=== PATIENT | female | born 1980 | race Two or more races ===

== ENCOUNTER 2023-09-26 17:44 | Emergency (ER) | payer OTHER, SELFPAY ==
[2023-09-26 17:48] VITALS: BP 180/112; PULSE 105; RESP 18; TEMP 36.6; O2SAT 100; BMI 36.8
--- NOTE | 2023-09-26 17:52 | ED_ITS ---
Documented by User: [email or web address] Lance 09/26/23 19:34 HPI - General Adult General Chief complaint: Headache Stated complaint: headache Time Seen by Provider: 09/26/23 17:50 Source: patient Mode of arrival: walk-in History of Present Illness HPI narrative: Patient is a 43-year-old female with a history of migraine who presents to the emergency department for increasing headache over the last several days. She reports associated vomiting, she is noted to be hypertensive at time of arrival to the ER and states she was not able to hold down her blood pressure medications today. She denies any fevers, significant upper respiratory symptoms, peripheral paresthesias. No falls or injuries. She states this headache is located over the top of the head, she is sensitive to light. She states this headache is consistent with previous headaches. She states typically she can control headaches with Tylenol and Motrin although this headache seems to be worse, she has occasionally had to come to the emergency department for treatment of headaches in the past. No sick contacts at home. She is not concerned for . She has not had any new visual changes, fevers. Related Data Previous Rx's Medication Instructions Recorded ketorolac 10 mg tablet 10 mg PO TID PRN pain #10 tabs 09/26/23 metoclopramide HCl 10 mg tablet 10 mg PO Q6H PRN nausea and 09/26/23 (Reglan) vomiting #12 tabs Allergies Allergy/AdvReac Type Severity Reaction Status Date / Time No Known Drug Allergies Allergy Verified 09/26/23 17:52 Review of Systems ROS Constitutional Denies: fever or chills Ears, nose, mouth, and throat Denies: throat pain or nasal congestion Cardiovascular Denies: chest pain Respiratory Denies: shortness of breath Gastrointestinal Reports: nausea and vomiting Genitourinary Denies: painful urination Musculoskeletal Denies: back pain or neck pain Integumentary/Breast Denies: rash Neurological Reports: headache; Denies: numbness in extremities, weakness in extremities, dizziness or vertigo Psychiatric Denies: anxiety Endocrine Denies: excessive urination Exam Narrative Exam Narrative: Gen.: Awake, alert, in no distress Head: Normocephalic, atraumatic ENT: Moist mucous membranes, no facial drooping, no nuchal rigidity, no meningismus Respiratory: No respiratory distress, lungs clear bilaterally Cardio: Regular rate and rhythm Extremities: Moves extremities equally, no injuries noted Psych: Normal mood and affect Neuro: No focal neuro deficit Skin: Warm, dry, intact Constitutional Vital Signs, click to edit/add: Last Vital Signs Temp 98 F 09/26/23 17:48 Pulse 105 H 09/26/23 17:48 Resp 18 09/26/23 17:48 BP 157/99 H 09/26/23 19:20 Pulse Ox 100 09/26/23 17:48 O2 Del Method Room Air 09/26/23 18:09 Course Vital Signs Vital signs: Vital Signs Temperature 98 F 09/26/23 17:48 Pulse Rate 105 H 09/26/23 17:48 Respiratory Rate 18 09/26/23 17:48 Blood Pressure 180/112 H 09/26/23 17:48 Pulse Oximetry 100 09/26/23 17:48 Oxygen Delivery Method Room Air 09/26/23 17:48 Temperature 98 F 09/26/23 17:48 Pulse Rate 105 H 09/26/23 17:48 Respiratory Rate 18 09/26/23 17:48 Blood Pressure 157/99 H 09/26/23 19:20 Pulse Oximetry 100 09/26/23 17:48 Oxygen Delivery Method Room Air 09/26/23 18:09 Medical Decision Making MDM Narrative Medical decision making narrative: Patient was treated with IV fluids, Reglan, Benadryl, Toradol, Norflex. She reported improvement of the headache, her blood pressure has improved significantly. She will be discharged home to follow-up with PCP, Reglan and Toradol given for home. Return to the ER if symptoms change or worsen. Medical Records Medical records reviewed: Yes I reviewed the patient's medical records Discharge Plan Discharge Chief Complaint: Headache Clinical Impression: Headache Patient Disposition: Home, Self-Care Time of Disposition Decision: 19:33 Condition: Good Prescriptions / Home Meds: New ketorolac 10 mg tablet 10 mg PO TID PRN (Reason: pain) Qty: 10 0RF metoclopramide HCl [Reglan] 10 mg tablet 10 mg PO Q6H PRN (Reason: nausea and vomiting) Qty: 12 0RF Instructions: Acute Headache (ED) Stand Alone Forms: Portal Instructions Referrals: CM HALEY [Primary Care Provider] - 1 week Discharge Date/Time: 09/26/23 20:00 Documented by User: Eron Nichole MD 09/26/23 20:13 HPI - General Adult General Chief complaint: Headache Stated complaint: headache Time Seen by Provider: 09/26/23 17:50 Related Data Previous Rx's Medication Instructions Recorded ketorolac 10 mg tablet 10 mg PO TID PRN pain #10 tabs 09/26/23 metoclopramide HCl 10 mg tablet 10 mg PO Q6H PRN nausea and 09/26/23 (Reglan) vomiting #12 tabs Allergies Allergy/AdvReac Type Severity Reaction Status Date / Time No Known Drug Allergies Allergy Verified 09/26/23 17:52 Exam Constitutional Vital Signs, click to edit/add: Last Vital Signs Temp 98 F 09/26/23 17:48 Pulse 105 H 09/26/23 17:48 Resp 18 09/26/23 17:48 BP 157/99 H 09/26/23 19:20 Pulse Ox 100 09/26/23 17:48 O2 Del Method Room Air 09/26/23 18:09 Course Vital Signs Vital signs: Vital Signs Temperature 98 F 09/26/23 17:48 Pulse Rate 105 H 09/26/23 17:48 Respiratory Rate 18 09/26/23 17:48 Blood Pressure 180/112 H 09/26/23 17:48 Pulse Oximetry 100 09/26/23 17:48 Oxygen Delivery Method Room Air 09/26/23 17:48 Temperature 98 F 09/26/23 17:48 Pulse Rate 105 H 09/26/23 17:48 Respiratory Rate 18 09/26/23 17:48 Blood Pressure 157/99 H 09/26/23 19:20 Pulse Oximetry 100 09/26/23 17:48 Oxygen Delivery Method Room Air 09/26/23 18:09 Medical Decision Making [facility] Narrative Medical decision making narrative: Patient was treated with IV fluids, Reglan, Benadryl, Toradol, Norflex. She reported improvement of the headache, her blood pressure has improved significantly. She will be discharged home to follow-up with PCP, Reglan and Toradol given for home. Return to the ER if symptoms change or worsen. I, Dr Nichole, have reviewed the above progress note and course of action in the ER; agree with the above. I have personally seen and evaluated this patient, gone over history and physical, and discussed disposition and treatment plan with the patient. Patient's headache was not the worse headache of her life, not sudden onset, not thunderclap in nature. Patient is aware to start creating a blood pressure of all, record her blood pressure twice a day for next week, and if patient continues to have elevated blood pressures she needs follow-up And establish PCP For further recommendation. Patient has asymptomatic hypertension in the Emergency Room tonight and it has improved with her headache improvement as well. Discharge Plan Discharge Chief Complaint: Headache Clinical Impression: Headache Patient Disposition: Home, Self-Care Time of Disposition Decision: 19:33 Condition: Good Prescriptions / Home Meds: New ketorolac 10 mg tablet 10 mg PO TID PRN (Reason: pain) Qty: 10 0RF metoclopramide HCl [Reglan] 10 mg tablet 10 mg PO Q6H PRN (Reason: nausea and vomiting) Qty: 12 0RF Instructions: Acute Headache (ED) Stand Alone Forms: Portal Instructions Referrals: CM HALEY [Primary Care Provider] - 1 week Discharge Date/Time: 09/26/23 20:00
[2023-09-26] MEDS: 0.9 % SODIUM CHLORIDE 1,000 ML 999 ML IV (18:14)
[2023-09-26] MEDS: DIPHENHYDRAMINE HCL 50 MG/ML (1ML) VIAL 25 MG IV (18:16)
[2023-09-26] MEDS: KETOROLAC TROMETHAMINE 30 MG/ML VIAL IVP (18:17)
[2023-09-26] MEDS: ORPHENADRINE 60 MG/ 2 ML VIAL IV (18:19)
[2023-09-26] MEDS: METOCLOPRAMIDE HCL 10 MG/2 ML VIAL INJ (18:21)
[2023-09-26 19:20] VITALS: BP 157/99
== END 2023-09-26 20:00 | disposition home or self-care (01) ==
PROVIDERS: Emergency Provider Emergency Medicine; PCP Internal Medicine
DX: R51.9 Headache, unspecified (principal)
CPT/HCPCS: 96372; 96374; 96375; 99284